=== PATIENT | male | born 1955 | race African-American/Black ===

== ENCOUNTER 2022-03-22 05:53 | Emergency (ER) | payer MEDICARE ==
[~2022-03-22 05:53] MED LIST: CEFDINIR300 MG PO
[2022-03-22 06:38] LABS: BASOPHIL 0.5 % (0-2); EOSINOPHIL 0.9 % (0-7); HCT 32.3 % (42.0-52.0); LYMPHOCYTE 17.3 % (15-48); MCH 28.2 pg (25.0-31.0); MCV 91.2 fL (78.0-100.0); MONOCYTE 8.5 % (0-12); MPV 9.9 fL (6.0-9.5); NEUTROPHIL 72.4 % (41-80); NRBC 0; PLT 251 K/uL (150-400); RBC 3.54 M/uL (4.70-6.00); RDW 16.7 % (11.5-14.0); WBC 9.7 K/uL (4.0-10.5)
[2022-03-22 06:55] LABS: ALBUMIN 2.6 g/dL (3.4-5.0); BILIRUBIN - TOTAL 0.3 mg/dL (0.2-1.0); CREATININE 1.16 mg/dL (0.67-1.17); GLOBULIN (CALCULATION) 4.6 g/dL; POTASSIUM 3.7 mmol/L (3.5-5.1); TOTAL PROTEIN 7.2 g/dL (6.4-8.2)
== END 2022-03-22 09:25 | disposition home or self-care (01) ==
LOC: FER 05:53
PROVIDERS: Emergency Medicine
DX: Z04.3 Encounter for examination and observation following other accident (principal); N39.0 Urinary tract infection, site not specified; G93.9 Disorder of brain, unspecified; I12.9 Hypertensive chronic kidney disease with stage 1 through stage 4 chronic kidney disease, or unspecified chronic kidney disease; N18.9 Chronic kidney disease, unspecified; Z88.0 Allergy status to penicillin; Z79.01 Long term (current) use of anticoagulants; Z88.8 Allergy status to other drugs, medicaments and biological substances; Z86.73 Personal history of transient ischemic attack (TIA), and cerebral infarction without residual deficits; Z79.899 Other long term (current) drug therapy
CPT/HCPCS: 36415; 70450; 80053; 85025